=== PATIENT | male | born 1950 | race Caucasian/White ===

== ENCOUNTER 2017-11-12 11:22 | Inpatient (IN) | payer OTHER ==
[~2017-11-12] VITALS: Ht 170.2 cm; Wt 71.7 kg
[~2017-11-12 11:22] MED LIST: ALENDRONATE SOD70 MG PO; ASPIRIN81 M2 PO; ATORVASTATIN CA20 MG PO; CARVEDILOL25 MG PO; FLOMAX0.4 MG PO; INSPRA25 MG PO; LANTUS SUBQ; LASIX 40 MG TAB40 M1 GT; LASIX 40 MG TAB40 M2 PO; LEVEMIR SUBQ; LISINOPRIL20 MG PO; NORCO 5-325 TA1 EACH PO; NORVASC2.5 MG PO; NOVOLOG100 UNIT/1 SQ; NOVOLOG100 UNIT/1 SUBQ; OMEPRAZOLE40 MG PO; ROBAXIN 750 MG750 MG PO; TRAMADOL 50 MG50 MG PO; TRAZODONE HCL100 MG PO; TUMS PO
[2017-11-12 11:28] VITALS: BP 138/65
[2017-11-12 12:17] LABS: HEMATOCRIT 33.6 % (42.0-52.0); HEMOGLOBIN 11.4 gm/dL (14.0-18.0); MCH 33.5 pg (26.0-34.0); MCHC 34.1 g/dL (28.0-37.0); MCV 98.4 fL (80.0-100.0); MPV 8.8 fl. (7.2-11.1); NUCLEATED RBCS 0 /100WBC; PLATELET COUNT* 180 thou/uL (150-400); RBC 3.41 mil/uL (4.50-6.00); RDW-CV 12.6 % (10.5-14.5); WBC 13.5 thou/uL (4.0-11.0)
[2017-11-12 12:21] LABS: BE 2.8 mmol/L (-2 to +3); HCO3 26.9 mmol/L (22.0-26.0); PCO2 39.6 mmHg (35.0-45.0); PO2 69.6 mmHg (75.0-100.0)
[2017-11-12 12:26] LABS: CALCIUM 8.8 mg/dL (8.5-10.1); POTASSIUM 3.8 mmol/L (3.5-5.1)
[2017-11-12 12:38] LABS: ALBUMIN 3.5 g/dL (3.4-5.0); MAGNESIUM 1.6 mg/dL (1.8-2.4); TOTAL BILIRUBIN 0.6 mg/dL (<0.1-1.0); TOTAL PROTEIN 6.4 g/dL (6.4-8.2)
[2017-11-12 12:49] LABS: ABSOLUTE LYMPHOCYTES 0.8 thou/uL (0.8-5.3); ABSOLUTE MONOCYTES 0.3 thou/uL (0.0-1.2); ABSOLUTE NEUTROPHILS 12.4 thou/uL (1.6-8.1); ANISOCYTOSIS 1+; PLATELET ESTIMATE ADEQUATE; POIKILOCYTOSIS 1+
[2017-11-12 13:37] LABS: URINE BILIRUBIN NEGATIVE (Negative); URINE BLOOD NEGATIVE (Negative); URINE CLARITY CLEAR; URINE COLOR YELLOW; URINE GLUCOSE-RANDOM 1+ (Negative); URINE KETONES NEGATIVE (Negative); URINE LEUKOCYTES-REFLEX NEGATIVE (Negative); URINE NITRITE-REFLEX NEGATIVE (Negative); URINE PROTEIN NEGATIVE (Negative); URINE SPECIFIC GRAVITY 1.015 (1.005-1.030); URINE UROBILINOGEN 0.2 E.U./dl (0.2-1.0)
[2017-11-12 15:35] VITALS: BP 120/53
[2017-11-12 16:00] VITALS: BP 143/57
[2017-11-12 19:20] VITALS: BP 116/42
[2017-11-12 21:44] VITALS: BP 116/42
[2017-11-13] VITALS: BP 123/54
[2017-11-13 04:00] VITALS: BP 140/60
[2017-11-13 04:49] LABS: HEMATOCRIT 30.9 % (42.0-52.0); HEMOGLOBIN 10.7 gm/dL (14.0-18.0); MCHC 34.6 g/dL (28.0-37.0); MCV 98.4 fL (80.0-100.0); MPV 9.4 fl. (7.2-11.1); RBC 3.14 mil/uL (4.50-6.00); RDW-CV 12.6 % (10.5-14.5); WBC 8.2 thou/uL (4.0-11.0)
--- NOTE | 2017-11-13 04:59 | NUR ---
PT AAOX4, RESP REG AND UNLABORED SKIN W/D NO ACUTE DISTRESS NOTED. TELEMETRY PACK INTACT WITH ALARMS SET. PT STATED HE WAS STILL WEAK AND UNSURE WHY HE WAS NOT ABLE TO WALK YESTERDAY MORNING. VSS AND NO ACUTE CHANGES DURING SHIFT. PT IS VERY UNSTEADY ON FEET EVEN WITH THE USE OF THE WALKER. WILL CONTINUE TO MONITOR
[2017-11-13 05:03] LABS: CALCIUM 8.2 mg/dL (8.5-10.1); CREATININE 0.9 mg/dL (0.6-1.3); MAGNESIUM 1.7 mg/dL (1.8-2.4); POTASSIUM 3.9 mmol/L (3.5-5.1)
[2017-11-13 08:00] VITALS: BP 149/57
[2017-11-13 11:00] VITALS: BP 141/93
--- NOTE | 2017-11-13 11:11 | EKG ---
[place] [address] ELECTROCARDIOGRAM REPORT Name: JOHNATHON ROSAS Room: [address] ADM IN .R.#: [id number] Admission: 11/12/17 Attend Phys: Justina Frazier MD Discharge: Date of : 46 Report #: [id number] THIS REPORT FOR: //name// [facility] ED Test Date: 2017-11-12 Test Time: 15:35:59 Pat Name: JOHNATHON ROSAS Department: Room: [facility] Gender: Fish Hatchery Manager: Mary DAVIS : 1950 Requested By: Bailee Tineo Order Number: [id number] MD: Pierce Cabrera Measurements Intervals [place] Rate: 72 P: 44 [place]: 181 QRS: -7 QRSD: 122 T: -10 QT: 415 QTc: 455 Interpretive Statements Sinus rhythm intraventricular conduction defect Compared to ECG 11/26/2016 09:17:28 no change Electronically Signed On 11-13-2017 11:11:19 CDT by Pierce Cabrera [email or web address] <ELECTRONICALLY SIGNED> By: Pierce Cabrera MD, [facility] 11/13/17 1111 1535 1535 Pierce Cabrera MD, [facility] /EPI
--- NOTE | 2017-11-13 11:54 | 2DMMODE ---
[place] [address] 2 D/M-MODE ECHOCARDIOGRAM Name: JOHNATHON ROSAS Room: [address] IN [facility]#: [id number] Admission: 11/12/17 Attend Phys: Justina Frazier, Discharge: Date of : 46 Date of Service: 11/13/17 1154 Report #: [id number] THIS REPORT FOR: //name// APPROVED REPORT Study performed: 11/13/2017 10:41:16 EXAM: Comprehensive 2D, Doppler, and color-flow Echocardiogram Patient Location: In-Patient Room #: [facility] [place] Status: routine BSA: 1.81 HR: 62 bpm BP: 140/60 mmHg Rhythm: NSR Other Information Study Quality: Good Indications Pleural Effusion 2D Dimensions IVSd: 9.66 (7-11mm) LVOT Diam: 22.22 (18-24mm) LVDd: 51.10 mm PWd: 8.50 (7-11mm) Ascending Ao: 32.60 (22-36mm) LVDs: 39.59 (25-40mm) Aortic Root: 32.79 mm Volumes Left Atrial Volume (Systole) LA ESV Index: 38.20 mL/m2 Aortic Valve AoV Peak Darrion.: 1.16 m/s AO Peak Gr.: 5.39 mmHg LVOT Max P.34 mmHg AO Mean Gr.: 3.17 mmHg LVOT Mean P.26 mmHg LVOT Max V: 0.77 m/s AO V2 VTI: 28.34 cm LVOT Mean V: 0.52 m/s TONIO (VTI): 2.60 cm2 LVOT V1 VTI: 19.02 cm Mitral Valve E/A Ratio: 0.72 MV Decel. Time: 135.43 ms MV E Max Darrion.: 0.70 m/[place] [address] 2 D/M-MODE ECHOCARDIOGRAM Name: JOHNATHON ROSAS Room: [address] IN [facility].#: [id number] Admission: 11/12/17 Attend Phys: Justina Frazier, Discharge: Date of : 46 Date of Service: 11/13/17 1154 Report #: [id number] MV PHT: 39.27 ms MVA (PHT): 5.60 cm2 TDI E/Lateral E': 4.67 E/Medial E': 8.75 Medial E' Darrion.: 0.08 m/s Lateral E' Darrion.: 0.15 m/s Pulmonary Valve PV Peak Darrion.: 1.09 m/s PV Peak Gr.: 4.76 mmHg Tricuspid Valve RAP Estimate: 5.00 mmHg TR Peak Gr.: 24.87 mmHg RVSP: 29.87 mmHg PA Pressure: 29.87 mmHg Left Ventricle The left ventricle is normal size. There is global hypokinesis of the left ventricle. There is normal left ventricular wall thickness. Left ventricular systolic function is moderately decreased. LVEF is 30-35%. Grade I - abnormal relaxation pattern. Right Ventricle Right ventricle is dilated. The right ventricular systolic function is normal. Pacemaker lead is present in the right ventricle. Atria Left atrium is mildly dilated. Right atrium is dilated. Aortic Valve The aortic valve is normal in structure. Trace aortic regurgitation. There is no aortic valvular stenosis. Mitral Valve The mitral valve is normal in structure. Trace mitral regurgitation. No evidence of mitral valve stenosis. Tricuspid Valve The tricuspid valve is normal in structure. Trace tricuspid regurgitation. estimated pa pressure 35 mm Hg Pulmonic Valve The pulmonary valve is normal in structure. Mild pulmonic regurgitation[place] [address] 2 D/M-MODE ECHOCARDIOGRAM Name: JOHNATHON ROSAS Elijah Room: [address] IN [facility]#: [id number] Admission: 11/12/17 Attend Phys: Justina Frazier, Discharge: Date of : 46 Date of Service: 11/13/17 1154 Report #: [id number] The aortic root is normal in size. IVC is normal in size and collapses with >50% inspiration Pericardium There is no pericardial effusion. <Conclusion> LVEF is 30-35%. Left atrium is mildly dilated. Right ventricle is dilated. <ELECTRONICALLY SIGNED> By: Pierce Cabrera MD, FACC 11/13/17 1154 1154 1154 Pierce Cabrera MD, FACC /INF
--- NOTE | 2017-11-13 13:47 | NUR ---
Pt is A&O. Resides at home with his . Independent with IADls, does majority of ADLs. Pt uses a walker or cane for mobility. No hx of HH or SNF. Goal is to return home at [place]. Following.
--- NOTE | 2017-11-13 14:40 | NUR ---
ASSUMED PT CARE AT 0700 PT IS ALERT AND ORIENTED X 4 PT C/O PAIN GAVE PAIN MEDS REASSESSED PT STATES PAIN IS BETTER, PT DENIES SOA ON RA, PT IS ALERT AND ORIENTED X 4 PT IS A FALL RISK BED AND CHAIR ALARMS ARE ON, PT IS UP WITH ASSIST X 1 WITH WALKER PT LEFT FOOT IS TURNED OUT PT AMBULATES WELL, PT IS SR ON THE MONITOR, PT HAS FLUIDS RUNNING, WILL CONTINUE TO MONITOR
[2017-11-13 16:00] VITALS: BP 119/41
[2017-11-13 19:35] VITALS: BP 125/55
[2017-11-14] VITALS: BP 147/46
[2017-11-14 04:00] VITALS: BP 100/67
--- NOTE | 2017-11-14 05:20 | NUR ---
PT AAOX4 RESP REG AND UNLABORED SKIN W/D NO ACUTE DISTRESS NOTED. PT APPEARS TO BE MUCH STRONGER THIS SHIFT AND IS TOLERATING AMBULATION BETTER. TELEMETRY PACK INTACT WITH ALARMS SET. PT STATES HE IS HOPING TO BE DCD TODAY. VSS AND NO ACUTE CHANGES DURING SHIFT WILL CONTINUE TO MONITOR
--- NOTE | 2017-11-14 07:25 | NUR ---
CHANGE OF SHIFT, BEDSIDE REPORT GIVEN PATIENT SEEN AT BEDSIDE IN BED ASLEEP ASSUMED PATIENT CARE
[2017-11-14 08:00] VITALS: BP 145/77
[2017-11-14 12:05] VITALS: BP 150/102
[2017-11-14 16:08] VITALS: BP 113/64
--- NOTE | 2017-11-14 19:46 | NUR ---
patient remains a and o x 4, forgetful apaced lungs cta/dim/ra good appetite last bm t-2 good uo up with 1 assist and use of walker to bathroom no c/o pain skin with a few bruises iv x 2 20 ga l ac and l fa sl cta and cxr completed today neuro cons seen accuchecks 152/266/344
[2017-11-14 20:00] VITALS: BP 152/50
[2017-11-15] VITALS: BP 133/56
[2017-11-15 04:00] VITALS: BP 120/42
[2017-11-15 05:08] LABS: HEMATOCRIT 30.7 % (42.0-52.0); HEMOGLOBIN 10.7 gm/dL (14.0-18.0); MCH 34.2 pg (26.0-34.0); MCHC 34.9 g/dL (28.0-37.0); RBC 3.13 mil/uL (4.50-6.00); RDW-CV 12.7 % (10.5-14.5); WBC 6.9 thou/uL (4.0-11.0)
--- NOTE | 2017-11-15 05:25 | NUR ---
ASSUMED CARE OF PT AFTER REPORT AT 1930. PT A&O4. VSS. PHYSICAL ASSESSMENT COMPLETED AND CHARTED. PT ON RA WITH 100% O2 SAT. PT TRACING A PACED ON TELE.PT UP WITH STANDBY ASSIST. PT COMPLAINED OF LOWER BACK PAIN AND SHOULDER PAIN WITH PAIN SCALE OF 6-7-PAIN MEDS GIVEN PER MAR WITH PARTIAL RELIEF.CALL LIGHT WITHIN REACH.
[2017-11-15 05:52] LABS: CALCIUM 8.4 mg/dL (8.5-10.1); CREATININE 0.8 mg/dL (0.6-1.3); POTASSIUM 3.6 mmol/L (3.5-5.1)
[2017-11-15 08:00] VITALS: BP 107/45
--- NOTE | 2017-11-15 08:30 | CON ---
[address] [address] CONSULTATION Name: JOHNATHON ROSAS Room: [address] IN M.R.#: [id number] Admission: 11/12/17 Attend Phys: Justina Frazier MD Discharge: Date of : 46 Report #: [id number] THIS REPORT FOR: //name// CC: Pierce Alexander MD INDICATION: Nonischemic cardiomyopathy. HISTORY OF PRESENT ILLNESS: The patient is a very pleasant 67-year-old gentleman who is known to our service. He has nonischemic cardiomyopathy. He presently appears well compensated. He denies any significant shortness of breath. He is not having orthopnea. By echocardiogram during this hospitalization, his EF is estimated to be 30-35%. Echocardiogram approximately a year ago documented EF of 45-50%. He is on carvedilol, lisinopril, Aldactone, and p.r.n. furosemide. Blood pressure is modestly elevated at this time. He was admitted to the hospital with some generalized weakness and inability to get up. He does have a history of hydrocephalus, status post AUTO FORMER MACHINE OPERATOR shunt placement. He has had longstanding ataxia. He is status post ICD placement for primary prevention. He has had no discharges from his defibrillator. PAST MEDICAL HISTORY: 1. Nonischemic cardiomyopathy. 2. Hydrocephalus, status post AUTO FORMER MACHINE OPERATOR shunt. 3. Type 2 diabetes mellitus. 4. Benign prostatic hypertrophy. 5. Hypertension. PAST SURGICAL HISTORY: 1. ICD placement for primary prevention. 2. Spinal fusion. FAMILY HISTORY: Noncontributory. SOCIAL HISTORY: The patient is a lifelong nonsmoker. He does not drink alcohol. ALLERGIES: No known drug allergies. HOME MEDICATIONS: Enteric coated aspirin 81 mg daily, atorvastatin 20 mg daily, carvedilol 25 mg b.i.d., furosemide 40 mg daily, insulin as directed, Levemir 10 units at bedtime, lisinopril 20 mg daily, Flomax 0.4 mg daily, trazodone 100 [place] [address] CONSULTATION Name: JOHNATHON ROSAS Room: [address]#: [id number] Admission: 11/12/17 Attend Phys: Justina Frazier MD Discharge: Date of : 46 Report #: [id number] REVIEW OF SYSTEMS: NEUROLOGIC: Denies convulsions, seizures or focal paralysis. GENERAL: There is no unexplained weight loss or fevers. RESPIRATORY: He is without cough, sputum production or underlying lung disease. CARDIAC: Evaluated as outlined above. GASTROINTESTINAL: No nausea, vomiting, diarrhea or constipation. GENITOURINARY: He has urinary hesitancy and BPH, but no dysuria or hematuria. HEMATOLOGIC AND LYMPHATIC: No history of anemia, bleeding disorder, or cancer. ALLERGY AND IMMUNOLOGIC: No significant allergies, medical or environmental. PSYCHIATRIC: No depression or anxiety. MUSCULOSKELETAL: He has arthritis without connective tissue diseases. SKIN: No recent rashes, hives or chronic skin conditions. EYES: He does wear glasses. He has no acute loss in vision. PHYSICAL EXAMINATION: VITAL SIGNS: Blood pressure 150/102, pulse 66 and regular. GENERAL: A pleasant gentleman, in no distress. Mood and affect appropriate. HEENT: The patient is wearing glasses. Extraocular muscles are intact. Mucous membranes are moist. NECK: Shows no jugular venous distention. There are no carotid bruits. CHEST: Reveals clear lung virk. I do not appreciate wheezes, rales or rhonchi. CARDIOVASCULAR: Reveals a regular rhythm with normal S1 and S2. I do not appreciate gallop or murmur. ABDOMEN: Reveals normal bowel sounds. The abdomen is soft and nontender. EXTREMITIES: Shows no edema. Peripheral pulses are palpable. SKIN: Warm and dry. IMPRESSION AND RECOMMENDATIONS: 1. Nonischemic cardiomyopathy. We will resume Aldactone at this time. Increase lisinopril at this time. Continue carvedilol at current dose. Further adjustments as necessary. The patient has followup with Dr. Cabrera in December. The patient is to keep that appointment. 2. Hypertension. Blood pressure modestly elevated at this time. We will follow after medication adjustments and make further adjustments as necessary. 3. Mixed hyperlipidemia. Continue atorvastatin at current dose. 4. AICD in place, functioning normally. No discharges recently. Keep followup as scheduled. <ELECTRONICALLY SIGNED> By: Francesco Arce MD, FACC 11/15/17 0830 1232 08Francesco Arce MD, FACC /nt
[2017-11-15 12:38] VITALS: BP 109/55
[2017-11-15] MEDS ORDERED: SPIRONOLACTONE25 MG PO (14:07)
[2017-11-15] MEDS ORDERED: ACCUPRIL40 MG PO ×2 (14:07→14:55)
[2017-11-15] MEDS ORDERED: AUGMENTIN 875-1 EACH PO (14:07)
[2017-11-15 14:16] VITALS: BP 109/55
[2017-11-15] MEDS ORDERED: NOVOLOG100 UNIT/1 SUBQ (14:52)
[2017-11-15 14:56] VITALS: BP 109/55
--- NOTE | 2017-11-15 15:30 | NUR ---
PATIENT DISCHARGED TO HOME ALL DC INSTRUCTIONS GIVEN AND ACKNOWLEDGED AND SIGNED IV AND HEART MONITOR REMOVED PERSONAL BELONGINGS RETURNED ASSISTED OUT VIA WC GOOD CONDITION TO WAITING CAR
--- NOTE | 2017-11-18 08:35 | CON ---
[address] [address] CONSULTATION Name: JOHNATHON ROSAS Room: [address] IN M.R.#: [id number] Admission: 11/12/17 Attend Phys: Justina Frazier MD Discharge: 11/15/17 Date of : 46 Report #: [id number] THIS REPORT FOR: //name// CC: Justina Chen DATE OF SERVICE: 11/13/2017 HISTORY OF PRESENT ILLNESS: This is a 67-year-old male patient whom I have seen in the past. This patient's history is not very clear and is very complicated. At this time, he was admitted because he apparently lost strength in all 4 extremities. This has happened to him before when he has some infection. He does have difficulty in walking even in the baseline. He has seen multiple neurosurgeons and he had a shunt placed in his brain as well as he had pretty extensive spine surgery. He indicates he cannot have an MRI both because of a shunt and because he has a defibrillator as well as pacemaker, which is not compatible with MRI as per family, but I do not know. He has seen Dr. Davenport, the neurologist in the past and as mentioned above, I have seen this patient too. His symptom when happened was severe and he was not able to walk and in fact did not have any strength in the legs. He did have some strength in the arm, but they were also minor. He was conscious during this episode. REVIEW OF SYSTEMS: Indicate that this patient has pretty extensive problem. He had pretty extensive surgery in the lumbar spine, looks like he has seen multiple neurosurgeons. They include neurosurgeon in [place], Dr. Pires, Dr. Lee, Dr. Forbes and Dr. Meraz over a period of time. His memory is stable. He does have cardiomyopathy, pacemaker. He does have a history of hypertension. He has a history of diabetes. He takes insulin. It is not clear how much control he has on his diabetes. He feels better this morning and his strength is improved. He is not having any chest pain, respiratory difficulty, GI, , eye, ENT, constitutional, dermatological, hematological, psychiatric, throat, allergic symptom associated with present symptomatology. PAST MEDICAL HISTORY: Positive for diabetes. FAMILY HISTORY: Negative for any early age stroke. SOCIAL HISTORY: He is . His was with him. He denies the use of alcohol. PHYSICAL EXAMINATION: Indicate he is alert, he is responsive, he is oriented. His memory and fund of knowledge is poor, but that has been like this for a while. Cranial nerve examination 2-12 looks unremarkable. He moves all 4 extremities and in fact has a reasonable strength in the lower extremity. His position sense is intact. His reflexes are absent in the lower extremities. There is no cerebellar sign. I could not look at the [place] [address] CONSULTATION Name: JOHNATHON ROSAS Room: [address]#: [id number] Admission: 11/12/17 Attend Phys: Justina Frazier MD Discharge: 11/15/17 Date of : 46 Report #: [id number] is no thyroid mass. His hearing and vision looks adequate. He does not have any dysmorphic features of eyes, ears and face. His pulses are difficult to feel. He has no edema, cyanosis or jaundice. His blood pressure is 149/57, respirations 19, pulse is 68, temperature is 98.3. His CT scan of the head was reviewed. His CT scan of the lumbar spine was reviewed and his labs were reviewed and his sodium is normal. He has a pretty good GFR. He is slightly anemic at a hemoglobin of 10.7. IMPRESSION: I think the patient has a baseline problem which caused him ambulation difficulty. 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 What causes present symptom to become worse is not clear. It is possible he has some encephalopathy, which is better, especially with the chest CT finding. I think it may be desirable to do CT angio of the head and neck in this patient. We will try to arrange at some time and we will order some other workup, but part of it may have to be done as an outpatient. He needs to follow up with a neurosurgeon for his spine as well as normal pressure hydrocephalus and I told that very clearly to him and he understands that. Thank you very much for this referral. <ELECTRONICALLY SIGNED> By: Ad Guerrero MD 11/18/17 0835 1154 2308Ad Guerrero MD /marva
== END 2017-11-15 15:30 | disposition home or self-care (01) | DRG 56 ==
LOC: M.ERS 11:22 → M.TBA-ER 14:47 → M.2W 14:47
PROVIDERS: Personal Emergency Response Attendant; ADMIT Internal Medicine
DX: G91.2 (Idiopathic) normal pressure hydrocephalus (principal); J15.6 Pneumonia due to other Gram-negative bacteria; G93.40 Encephalopathy, unspecified; I50.22 Chronic systolic (congestive) heart failure; J96.10 Chronic respiratory failure, unspecified whether with hypoxia or hypercapnia; I42.9 Cardiomyopathy, unspecified; E07.9 Disorder of thyroid, unspecified; N40.0 Benign prostatic hyperplasia without lower urinary tract symptoms; E78.00 Pure hypercholesterolemia, unspecified; E78.5 Hyperlipidemia, unspecified; E11.40 Type 2 diabetes mellitus with diabetic neuropathy, unspecified; I11.0 Hypertensive heart disease with heart failure; Z79.2 Long term (current) use of antibiotics; Z79.82 Long term (current) use of aspirin; Z79.899 Other long term (current) drug therapy; Z79.4 Long term (current) use of insulin; Z82.49 Family history of ischemic heart disease and other diseases of the circulatory system; Z98.2 Presence of cerebrospinal fluid drainage device; Z95.810 Presence of automatic (implantable) cardiac defibrillator; Z98.1 Arthrodesis status

== ENCOUNTER 2018-09-20 16:23 | Emergency (ER) | payer OTHER ==
[~2018-09-20] VITALS: Ht 172.7 cm; Wt 70.3 kg
[~2018-09-20 16:23] MED LIST changes: +ACCUPRIL40 MG PO; +AUGMENTIN 875-1 EACH PO; +SPIRONOLACTONE25 MG PO
[2018-09-20 16:38] VITALS: BP 117/59
[2018-09-20] MEDS ORDERED: FINASTERIDE5 MG PO (16:45)
[2018-09-20] MEDS ORDERED: PROTONIX 20 MG20 M1 PO (16:45)
[2018-09-20] MEDS ORDERED: HYDROCODON-ACE1 EAC5 PO (16:45)
[2018-09-20] MEDS ORDERED: TERBINAFINE HC250 MG PO (16:46)
[2018-09-20 17:53] LABS: URINE BILIRUBIN NEGATIVE (Negative); URINE BLOOD NEGATIVE (Negative); URINE CLARITY CLEAR; URINE COLOR YELLOW; URINE GLUCOSE-RANDOM NEGATIVE (Negative); URINE KETONES 1+ (Negative); URINE LEUKOCYTES-REFLEX TRACE (Negative); URINE NITRITE-REFLEX NEGATIVE (Negative); URINE PROTEIN NEGATIVE (Negative); URINE SPECIFIC GRAVITY 1.015 (1.005-1.030); URINE UROBILINOGEN 0.2 E.U./dl (0.2-1.0)
[2018-09-20 18:00] LABS: SQUAMOUS 0-3 Few /LPF (0-3)
[2018-09-20 18:01] LABS: BACTERIA-REFLEX 1-9 Few /HPF (None Seen); CRYSTALS None Seen /LPF (None Seen); HYALINE CASTS 0-3 Few /LPF (None Seen); MUCUS >6 Heavy strn/LPF (None Seen); URINE RBC 0-2 Rare /HPF (0-2); URINE WBC-REFLEX 0-5 Rare /HPF (0-5)
[2018-09-20 18:42] LABS: ABSOLUTE EOSINOPHILS 0.1 thou/uL (0.0-0.7); ABSOLUTE LYMPHOCYTES 0.8 thou/uL (0.8-5.3); ABSOLUTE MONOCYTES 0.8 thou/uL (0.0-1.2); ABSOLUTE NEUTROPHILS 5.7 thou/uL (1.6-8.1); BASOPHILS 0.5 %; EOSINOPHILS 0.9 %; HEMATOCRIT 30.9 % (42.0-52.0); HEMOGLOBIN 10.7 gm/dL (14.0-18.0); LYMPHOCYTES 10.4 %; MCH 34.5 pg (26.0-34.0); MCHC 34.7 g/dL (28.0-37.0); MCV 99.7 fL (80.0-100.0); MONOCYTES 11.2 %; MPV 8.9 fl. (7.2-11.1); NUCLEATED RBCS 0 /100WBC; PLATELET COUNT* 178 thou/uL (150-400); RDW-CV 12.8 % (10.5-14.5); WBC 7.4 thou/uL (4.0-11.0)
[2018-09-20 18:52] LABS: ANION GAP 7 mmol/L (7-16); BUN 31 mg/dL (7-18); CALCIUM 8.7 mg/dL (8.5-10.1); CHLORIDE 104 mmol/L (98-107); CO2 28 mmol/L (21-32); CREATININE 1.3 mg/dL (0.6-1.3); GLUCOSE 159 mg/dL (70-99); POTASSIUM 4.3 mmol/L (3.5-5.1); SODIUM 139 mmol/L (136-145)
[2018-09-20 19:02] LABS: ALBUMIN 3.4 g/dL (3.4-5.0); ALKALINE PHOSPHATASE 88 U/L (46-116); LIPASE 86 U/L (73-393); SGOT 14 U/L (15-37); SGPT 22 U/L (30-65); TOTAL BILIRUBIN 0.4 mg/dL (<0.1-1.0); TOTAL PROTEIN 6.3 g/dL (6.4-8.2); TROPONIN-I LEVEL <0.06 ng/mL (<0.06)
[2018-09-20 23:37] VITALS: BP 142/71
--- NOTE | 2018-09-22 13:32 | EKG ---
[place] [address] ELECTROCARDIOGRAM REPORT Name: JOHNATHON ROSAS Room: [facility]#: [id number] Admission: 09/20/18 Attend Phys: Discharge: 09/20/18 Date of : 46 Report #: [id number] THIS REPORT FOR: //name// [facility] ED Test Date: 2018-09-20 Test Time: 18:35:06 Pat Name: JOHNATHON YAOES Department: Room: [facility] Gender: M Compliance Aide: Mary ERNANDEZ : 1950 Requested By: Noris Marie Order Number: [id number] MD: Smooth Tellez Measurements Intervals [place] Rate: 61 P: 41 NC: 170 QRS: 2 QRSD: 132 T: -2 QT: 438 QTc: 442 Interpretive Statements Atrial-paced complexes Left bundle branch block Compared to ECG 11/12/2017 15:35:59 Left bundle-branch block now present Electronically Signed On 09-22-2018 13:32:40 CDT by Smooth Tellez [email or web address] <ELECTRONICALLY SIGNED> By: Smooth Tellez MD, [facility] 09/22/18 1332 1835 183 Smooth Tellez MD, [facility] /EPI
== END 2018-09-20 23:38 | disposition short-term general hospital (02) ==
LOC: M.ERS 16:23 → M.TBA-ER 20:12 → M.ERS 23:38
PROVIDERS: Nurse Practitioner Family
DX: E86.0 Dehydration (principal); R51 Headache; R53.1 Weakness; I10 Essential (primary) hypertension; E11.9 Type 2 diabetes mellitus without complications; F03.90 Unspecified dementia, unspecified severity, without behavioral disturbance, psychotic disturbance, mood disturbance, and anxiety; Z95.0 Presence of cardiac pacemaker; R29.6 Repeated falls

== ENCOUNTER 2018-10-06 20:29 | Emergency (ER) | payer OTHER ==
[~2018-10-06] VITALS: Ht 170.2 cm; Wt 70.8 kg
[~2018-10-06 20:29] MED LIST changes: +FINASTERIDE5 MG PO; +HYDROCODON-ACE1 EAC5 PO; +PROTONIX 20 MG20 M1 PO; +TERBINAFINE HC250 MG PO
[2018-10-06 20:49] LABS: ABSOLUTE BASOPHILS 0.1 thou/uL (0.0-0.2); ABSOLUTE EOSINOPHILS 0.3 thou/uL (0.0-0.7); ABSOLUTE LYMPHOCYTES 0.7 thou/uL (0.8-5.3); ABSOLUTE MONOCYTES 0.8 thou/uL (0.0-1.2); ABSOLUTE NEUTROPHILS 7.4 thou/uL (1.6-8.1); BASOPHILS 0.6 %; EOSINOPHILS 2.9 %; HEMATOCRIT 33.6 % (42.0-52.0); HEMOGLOBIN 11.3 gm/dL (14.0-18.0); LYMPHOCYTES 7.7 %; MCH 33.8 pg (26.0-34.0); MCHC 33.7 g/dL (28.0-37.0); MCV 100.3 fL (80.0-100.0); MONOCYTES 9.1 %; NUCLEATED RBCS 0 /100WBC; PLATELET COUNT* 216 thou/uL (150-400); POLYS 79.7 %; RBC 3.35 mil/uL (4.50-6.00); RDW-CV 13.1 % (10.5-14.5); WBC 9.3 thou/uL (4.0-11.0)
[2018-10-06 20:57] LABS: CALCIUM 9.1 mg/dL (8.5-10.1); CREATININE 1.2 mg/dL (0.6-1.3); POTASSIUM 5.4 mmol/L (3.5-5.1)
[2018-10-06] MEDS ORDERED: LASIX 20 MG TAB20 MG (20:58)
[2018-10-06 21:01] LABS: ALBUMIN 3.4 g/dL (3.4-5.0); TOTAL BILIRUBIN 0.3 mg/dL (<0.1-1.0); TOTAL PROTEIN 6.4 g/dL (6.4-8.2)
[2018-10-06] MEDS ORDERED: NORCO 5-325 TA1 EAC1 (21:01)
[2018-10-06 21:03] LABS: URINE BILIRUBIN NEGATIVE (Negative); URINE BLOOD NEGATIVE (Negative); URINE CLARITY CLEAR; URINE COLOR YELLOW; URINE GLUCOSE-RANDOM 3+ (Negative); URINE KETONES NEGATIVE (Negative); URINE LEUKOCYTES-REFLEX NEGATIVE (Negative); URINE NITRITE-REFLEX NEGATIVE (Negative); URINE PROTEIN NEGATIVE (Negative); URINE SPECIFIC GRAVITY <= 1.005 (1.005-1.030); URINE UROBILINOGEN 0.2 E.U./dl (0.2-1.0)
[2018-10-06] MEDS ORDERED: NOVOLOG (21:08)
[2018-10-06 23:24] VITALS: BP 168/71
== END 2018-10-06 23:25 | disposition home or self-care (01) ==
LOC: M.ERS 20:29
PROVIDERS: Emergency Medicine
DX: S22.41XA Multiple fractures of ribs, right side, initial encounter for closed fracture (principal); R10.11 Right upper quadrant pain; I10 Essential (primary) hypertension; E11.9 Type 2 diabetes mellitus without complications; F03.90 Unspecified dementia, unspecified severity, without behavioral disturbance, psychotic disturbance, mood disturbance, and anxiety; Z79.4 Long term (current) use of insulin; W01.0XXA Fall on same level from slipping, tripping and stumbling without subsequent striking against object, initial encounter; Y93.89 Activity, other specified; Y92.128 Other place in nursing home as the place of occurrence of the external cause; Y99.8 Other external cause status

== ENCOUNTER → 2019-01-08 | Outpatient (CLI) | payer OTHER ==
[~2019-01-08] VITALS: Ht 170.2 cm; Wt 70.4 kg
[~2019-01-08] MED LIST changes: +LASIX 20 MG TAB20 MG; +NORCO 5-325 TA1 EAC1; +NOVOLOG
[2019-01-08 09:46] VITALS: BP 130/51
[2019-01-08 10:07] LABS: HEMATOCRIT 36.1 % (42.0-52.0); HEMOGLOBIN 12.4 gm/dL (14.0-18.0); MCH 33.5 pg (26.0-34.0); MCHC 34.5 g/dL (28.0-37.0); MCV 97.3 fL (80.0-100.0); MPV 8.9 fl. (7.2-11.1); RBC 3.71 mil/uL (4.50-6.00); RDW-CV 13.3 % (10.5-14.5); WBC 7.7 thou/uL (4.0-11.0)
[2019-01-08 10:17] LABS: CALCIUM 9.5 mg/dL (8.5-10.1); CREATININE 1.1 mg/dL (0.6-1.3); POTASSIUM 4.2 mmol/L (3.5-5.1)
[2019-01-08 11:45] VITALS: BP 138/61
[2019-01-08 12:02] VITALS: BP 141/70
[2019-01-08 12:15] VITALS: BP 141/70
[2019-01-08 12:45] VITALS: BP 129/57
--- NOTE | 2019-01-08 17:04 | CARD ---
[address] [address] CARDIAC CATH REPORT Name: ROSASJOHNATHON ZOE [id number] Admission: 01/08/19 Attend Phys: Francesco Arce MD Discharge: Date of : 46 Report #: [id number] THIS REPORT FOR: //name// APPROVED REPORT Study performed: 01/08/2019 10:20:22 Patient Status: Out-Patient Room #: Event Personnel: Francesco Arce Manager Strategy & Account, Ivonne Pierce RN Furnace Cooler, Bonifacio Nolan (Brian Cerrato Brad TELEMETRY TECHNICIAN Monitor, Ting Casiano RTR Monitor Exam: Generator change Dual Chamber ICD Indications: ICD generator at elective replacement. The patient is a 68 year-old male with a history of nonischemic cardiomyopathy. Conscious Sedation Start time: 1052 End Time: 1109 Fentanyl 100 mcg Versed 2 mg Fluoro: 0.1 min DAP: 29 mGy: 1 Implanted Devices: Dual Chamber ICD Generator Medtronic Serial # [id number] Lot # [id number] Procedure The patient underwent informed consent. We discussed the details of the procedure including the risks, which include, but not limited to bleeding, infection, vascular damage, cardiac perforation, and pneumothorax. After informed consent was obtained the patient was brought to the cardiac catheterization lab. The area of the left chest was prepped and draped in sterile fashion. Local anesthesia was achieved with 1% lidocaine. Next after an initial incision was made over the existing ICD generator the generator was explanted using electrocautery and blunt dissection. The generator was detached from the leads. The device pocket and leads were flushed with antibiotic solution. Next a new Medtronic ICD generator was attached to the leads. The redundant lead and generator were placed within the device pocket. The deep tissues were closed with interrupted stitches of 2-0 Vicryl. The skin incision was then closed with a single subcuticular stitch of 4-0 Vicryl. Several Steri-Strips were placed across the incision. A sterile Telfa dressing was then covered with a Tegaderm. The patient tolerated the procedure [place] [address] CARDIAC CATH REPORT Name: [facility]ATH[facility] ROSAS [id number] Admission: 01/08/19 Attend Phys: Francesco Arce MD Discharge: Date of : 46 Report #: [id number] Generator Change The lead was attached to the appropriate receptacle on the new pulse generator and setscrews firmly tightened to insure adequate contact and stability. The lead and pulse generator were placed into the subcutaneous pocket. Sharp and sponge counts were confirmed to be correct. At this time the pocket was closed subcutaneously with a 2.0 Vicryl and the skin was closed with a 4.0 Vicryl. The operative site was dressed in sterile fashion with steri strips, benzoin spray, telfa, and tegaderm and the patient was transferred to the floor in stable condition. Complications The patient tolerated the procedure well and there were no complications associated with the procedure. Findings Estimated Blood Loss: less than 5 ml Conclusion 1. ICD generator at elective replacement. 2. Successful replacement of the ICD generator. Recommendations 1. Follow-up site check in one week. 2. Follow-up device interrogation in one to 2 months. <ELECTRONICALLY SIGNED> By: Francesco Arce MD, FACC 01/08/19 1704 03 1704Michaekurtis Arce MD, FACC /INF
== END | disposition home or self-care (01) ==
LOC: M.CL 09:07
PROVIDERS: Internal Medicine Cardiovascular Disease
DX: Z45.02 Encounter for adjustment and management of automatic implantable cardiac defibrillator (principal); I10 Essential (primary) hypertension; E11.9 Type 2 diabetes mellitus without complications; I42.9 Cardiomyopathy, unspecified; Z79.899 Other long term (current) drug therapy; Z79.82 Long term (current) use of aspirin; Z79.4 Long term (current) use of insulin

== ENCOUNTER 2021-06-06 08:11 | Inpatient (IN) | payer BC ==
[~2021-06-06] VITALS: Ht 167.6 cm; Wt 71.2 kg
[2021-06-06 08:28] VITALS: BP 125/64
[2021-06-06 09:16] LABS: HEMATOCRIT 35.1 % (42.0-52.0); HEMOGLOBIN 11.9 gm/dL (14.0-18.0); MCH 33.8 pg (26.0-34.0); MCHC 33.8 g/dL (28.0-37.0); MCV 99.9 fL (80.0-100.0); MPV 8.3 fl. (7.2-11.1); NUCLEATED RBCS 0 /100WBC; PLATELET COUNT* 166 thou/uL (150-400); RBC 3.51 mil/uL (4.50-6.00); RDW-CV 12.5 % (10.5-14.5); WBC 14.6 thou/uL (4.0-11.0)
[2021-06-06 09:27] LABS: CALCIUM 8.8 mg/dL (8.5-10.1); CREATININE 1.4 mg/dL (0.6-1.3); POTASSIUM 3.4 mmol/L (3.5-5.1)
[2021-06-06 09:38] LABS: TOTAL PROTEIN 6.7 g/dL (6.4-8.2)
[2021-06-06 09:52] LABS: URINE BILIRUBIN NEGATIVE (Negative); URINE BLOOD NEGATIVE (Negative); URINE CLARITY CLEAR; URINE COLOR YELLOW; URINE GLUCOSE-RANDOM 1+ (Negative); URINE KETONES NEGATIVE (Negative); URINE LEUKOCYTES-REFLEX NEGATIVE (Negative); URINE NITRITE-REFLEX NEGATIVE (Negative); URINE PROTEIN NEGATIVE (Negative); URINE UROBILINOGEN 0.2 E.U./dl (0.2-1.0)
[2021-06-06 10:32] LABS: ABSOLUTE LYMPHOCYTES 0.1 thou/uL (0.8-5.3); ABSOLUTE MONOCYTES 0.7 thou/uL (0.0-1.2); ABSOLUTE NEUTROPHILS 13.7 thou/uL (1.6-8.1); PLATELET ESTIMATE ADEQUATE
--- NOTE | 2021-06-06 16:36 | EKG ---
[place] [address] ELECTROCARDIOGRAM REPORT Name: JOHNATHON ROSAS Room: [place] [address] ADM IN R.#: [id number] Admission: 06/06/21 Attend Phys: Marlon Barone Discharge: Date of : 46 Date of Service: 06/06/21921 Report #: [id number] THIS REPORT FOR: //name// [facility] ED Test Date: 2021-06-06 Test Time: 09:22:06 Pat Name: JOHNATHON ROSAS Department: Room: [facility] Gender: M Veterinary Assistant: : 1950 Requested By: Carlos Enrique Trejo Order Number: [id number] MD: Pierce Cabrera Measurements Intervals [place] Rate: 88 P: 63 CT: 181 QRS: 19 QRSD: 130 T: 47 QT: 383 QTc: 464 Interpretive Statements Sinus rhythm Probable left ventricular hypertrophy ST elevation, consider early repolarization Compared to ECG 09/20/2018 18:35:06 no change Electronically Signed On 06-06-2021 16:36:06 UNEMPLOYMENT INSURANCE DIRECTOR by Pierce Cabrera [email or web address] <ELECTRONICALLY SIGNED> By: Pierce Cabrera MD, [facility] 06/06/21 1636 1 1 Pierce Cabrera MD, [facility] /EPI
[2021-06-07 01:05] VITALS: BP 154/58
[2021-06-07 01:10] VITALS: BP 157/69
[2021-06-07 04:00] VITALS: BP 146/53
[2021-06-07 11:56] VITALS: BP 138/54
[2021-06-07 16:00] VITALS: BP 116/47
[2021-06-07 20:00] VITALS: BP 121/40
[2021-06-08] VITALS: BP 126/46
[2021-06-08 04:00] VITALS: BP 135/51
[2021-06-08] MEDS ORDERED: METRONIDAZOLE500 M4 PO (10:15)
[2021-06-08] MEDS ORDERED: LEVOFLOXACIN250 MG PO (10:15)
[2021-06-08 11:41] VITALS: BP 150/64
== END 2021-06-08 12:15 | disposition home health service (06) | DRG 871 ==
LOC: M.ERS 08:11 → M.TBA-ER 11:22 → M.2W 11:22
PROVIDERS: Family Medicine; ADMIT Internal Medicine; ATTEND Internal Medicine
DX: A41.9 Sepsis, unspecified organism (principal); N17.0 Acute kidney failure with tubular necrosis; J15.6 Pneumonia due to other Gram-negative bacteria; I42.9 Cardiomyopathy, unspecified; G91.2 (Idiopathic) normal pressure hydrocephalus; A04.9 Bacterial intestinal infection, unspecified; E11.9 Type 2 diabetes mellitus without complications; R29.6 Repeated falls; E87.6 Hypokalemia; F03.90 Unspecified dementia, unspecified severity, without behavioral disturbance, psychotic disturbance, mood disturbance, and anxiety; I10 Essential (primary) hypertension; Z20.822 Contact with and (suspected) exposure to COVID-19; Z28.21 Immunization not carried out because of patient refusal; Z91.81 History of falling; Z98.2 Presence of cerebrospinal fluid drainage device; Z79.899 Other long term (current) drug therapy; Z79.4 Long term (current) use of insulin; Z79.82 Long term (current) use of aspirin; Z95.810 Presence of automatic (implantable) cardiac defibrillator